=== PATIENT | female | born 1965 | race African-American/Black ===

== ENCOUNTER 2017-04-18 21:54 | Inpatient (IN) | payer MEDICAID ==
[~2017-04-18] VITALS: Ht 152.4 cm; Wt 73.9 kg
[2017-04-19] MEDS ORDERED: SODIUM CHLORIDE 0.9% 1,000 ML IV ONE (00:24)
[2017-04-19] MEDS ORDERED: ONDANSETRON HCL 4MG/2ML VIAL IV STA (00:24)
[2017-04-19] MEDS ORDERED: MORPHINE SULFATE 4 MG/ML CPJ (NOT FOR IM USE) IV STA (00:24)
[2017-04-19] MEDS ORDERED: LORAZEPAM 2MG/ML CPJ IV ONE (00:30)
[2017-04-19 00:58] LABS: BASOPHILS % 0.3 % (0.0-2.0); HEMATOCRIT. 45.4 % (36.0-48.0); HEMOGLOBIN. 15.8 g/dL (12.0-16.0); MEAN CORPUSCULAR HEMOGLOBIN 29.3 pg (28.0-32.0); MEAN CORPUSCULAR VOLUME 84.2 fL (81.0-99.0); MEAN PLATELET VOLUME 9.2 fl (7.4-10.4); MONOCYTES % 3.1 % (2.0-8.0); NEUTROPHILS % 80.6 % (40.0-76.0); PLATELET 311 x1000/uL (130-400); RED BLOOD CELL COUNT 5.39 mill/uL (4.2-5.4); RED CELL DISTRIBUTION WIDTH 14.3 % (11.6-14.6)
[2017-04-19 01:12] LABS: CARBON DIOXIDE 19 mEq/L (21-32); CHLORIDE 104 mEq/L (98-107); TROPONIN I < 0.02 ng/mL (0.00-0.04)
[2017-04-19] MEDS ORDERED: SODIUM CHLORIDE 0.9% 1,000 ML IV SCH ×2 (01:23→05:00)
[2017-04-19] MEDS ORDERED: POTASSIUM CHLORIDE 20MEQ TABLET SR PO ONE (01:30)
[2017-04-19 04:40] VITALS: BP 114/71
[2017-04-19] MEDS ORDERED: MAGNESIUM/ALUMINUM HYDROXIDE/SIMETHICONE 30ML UDC PO PRN (05:00)
[2017-04-19] MEDS ORDERED: MORPHINE SULFATE 4 MG/ML CPJ (NOT FOR IM USE) IV PRN (05:00)
[2017-04-19] MEDS ORDERED: ACETAMINOPHEN 325MG TABLET PO PRN (05:00)
[2017-04-19] MEDS ORDERED: MAGNESIUM 2 G PREMIX 50 ML IV PRN (05:00)
[2017-04-19] MEDS ORDERED: DIPHENHYDRAMINE 50MG/ML VIAL IV PRN (05:00)
[2017-04-19] MEDS ORDERED: CLONIDINE 0.1MG TABLET PO PRN (05:00)
[2017-04-19] MEDS ORDERED: ONDANSETRON HCL 4MG/2ML VIAL IV PRN (05:00)
[2017-04-19] MEDS ORDERED: VENL-179 PO (05:21)
[2017-04-19] MEDS ORDERED: METO25TA6 PO (05:21)
[2017-04-19] MEDS ORDERED: TAMO20TA4 PO (05:21)
[2017-04-19] MEDS ORDERED: DYAZIDE (05:21)
[2017-04-19] MEDS ORDERED: MECL-109 PO (05:21)
[2017-04-19] MEDS ORDERED: TOPA25 PO (05:21)
[2017-04-19] MEDS ORDERED: DIAZ5TAB PO (05:22)
[2017-04-19 05:23] VITALS: BP 114/71
[2017-04-19] MEDS ORDERED: POTASSIUM CHLORIDE 20MEQ TABLET SR PO NR ×3 (06:00→15:45)
[2017-04-19] MEDS ORDERED: POTASSIUM CHLORIDE INJ 40 MEQ in DEXT 5% WATER 250 ML IV NR (07:00)
[2017-04-19 08:00] VITALS: BP 107/61
[2017-04-19] MEDS ORDERED: FAMOTIDINE 20MG/2ML VIAL IV SCH (09:00)
[2017-04-19] MEDS ORDERED: IOHEXOL-300 100 ML BOTTLE ONE (14:25)
[2017-04-19] MEDS ORDERED: SODIUM CHLORIDE 0.9% 10ML VIAL ONE (14:25)
[2017-04-19] MEDS ORDERED: POTASSIUM CHLORIDE INJ 40 MEQ in DEXT 5% WATER 250 ML IV SCH (15:00)
[2017-04-19 17:14] VITALS: BP 100/62
== END 2017-04-19 17:32 | disposition home or self-care (01) | DRG 425 ==
LOC: ER 21:54 → 5WST 04-19 01:26 → EDBEDREQ 04-19 01:29 → ENRESERV 04-19 02:01
PROVIDERS: ADMIT Internal Medicine; ATTEND Internal Medicine
DX: E87.6 Hypokalemia (principal); E87.2 Acidosis; I10 Essential (primary) hypertension; F41.9 Anxiety disorder, unspecified; H81.09 Meniere's disease, unspecified ear; Z82.49 Family history of ischemic heart disease and other diseases of the circulatory system; Z82.71 Family history of polycystic kidney; Z85.3 Personal history of malignant neoplasm of breast; Z79.899 Other long term (current) drug therapy; Z90.49 Acquired absence of other specified parts of digestive tract; Z90.10 Acquired absence of unspecified breast and nipple
CPT/HCPCS: 36415; 71010; 74177; 76705; 80051; 80053; 83605; 83690; 83735; 84484; 85025; 85379; 93005; 96361; 96374; 96375; 99285; A4216; J2060; J2270; J2405; J3480; J3490; J7030; J7060; Q9967